=== PATIENT | male | born 1960 | race Caucasian/White ===

== ENCOUNTER 2016-04-06 07:49 | Day surgery (SDC) | payer OTHER ==
[2016-04-06] MEDS ORDERED: PROPOFOL 10 MG/ML VIAL IV ONE (12:00)
[2016-04-06] MEDS ORDERED: LIDOCAINE 2% MDV (20MG/ML) 20ML VIAL IV ONE ×2 (12:00)
--- NOTE | 2016-04-10 10:10 | Operative Note ---
DATE OF SURGERY: 04/06/16 REFERRING: Angelo Avalos M.D. PREOPERATIVE DIAGNOSIS: Family history of colon polyps. POSTOPERATIVE DIAGNOSIS: Multiple colon polyps removed with cold forceps and cold snare. OPERATION: COLONOSCOPY with cold snare and cold forceps polypectomies. Surgeon: Antonino Martinez D.O. PREPARATION QUALITY: Excellent. Estimated Blood Loss: Minimal. SPECIMENS: Include descending colon polyp x 1, sigmoid colon polyp x 1, rectal polyps x 3. PROCEDURE: After informed consent was obtained from the patient, he was placed in left lateral decubitus position in the endoscopy suite, sedated and monitored by Department of Anesthesia. Digital rectal examination revealed no palpable mass. A well-lubricated PCF-180 colonoscope was inserted into the rectum and advanced to the cecum. Preparation quality was excellent. The cecum was noted by the ileocecal valve and appendiceal orifice and ascending colon and transverse colon were unremarkable. In the descending colon there was a 3 to 4 mm sessile polyp removed with a cold snare with minimal bleeding noted. The polyp was retrieved without difficulty. The sigmoid colon revealed another diminutive polyp which was removed with a cold forceps. Minimal bleeding was noted. In the rectum there were 3 polyps, 1 diminutive removed with a cold forceps, 2 polyps in the range from 3 to 5 mm, each removed with a cold snare with minimal bleeding noted. The descending colon, sigmoid colon and rectum were otherwise unremarkable. J-turn views of the anorectum were unremarkable as well. The endoscope was straightened, rectal ampulla was deflated, the endoscope was removed. RECOMMENDATIONS: The patient should resume his medications and diet. He should stop smoking. He should undergo repeat exam in 3 to 5 years pending tissue histology. As always, thank you for allowing me to participate in the care of your patient. Antonino Martinez DO CC: Angelo Avalos M.D. [facility]ITALLawrence
== END 2016-04-06 10:10 | disposition home or self-care (01) ==
LOC: HOP 07:49
PROVIDERS: ATTEND Internal Medicine Gastroenterology
DX: Z83.71 Family history of colonic polyps (principal); D12.4 Benign neoplasm of descending colon; D12.5 Benign neoplasm of sigmoid colon; F17.200 Nicotine dependence, unspecified, uncomplicated; K63.5 Polyp of colon; E03.9 Hypothyroidism, unspecified; I10 Essential (primary) hypertension